=== PATIENT | female | born 1935 ===

== ENCOUNTER 2017-03-14 23:02 | Inpatient (IN) | payer MEDICARE ==
[~2017-03-14] VITALS: Ht 142.2 cm; Wt 95.3 kg
--- NOTE | 2017-03-14 22:00 | NUR ---
Patient alert and oriented and verbally able to let needs known. Was admitted from [facility] for R ankle ORIF s/p fall. Patient states that she lives in [place] and came to [place] for a wedding that she unfortunately couldn't make it to. Patient does deny any pain or discomfort at this time, no SOB respirations even and unlabored on room air. Vitals WNL. Skin check done and noted with bruises on R and L hand. R ankle is wrapped, will contact surgeon tomorrow for any treatment orders. Dr Perez from the [facility] was called, went over orders and continued medication as ordered. Also contacted Dr. Vuong and informed him of the orders. Patient in bed resting peacefully, explained the use of call light; it is within reach. Will continue to monitor.
[2017-03-15] MEDS: HYDROCODONE/APAP 10-325 MG TABLET PO PRN ×2 (06:19→16:07)
--- NOTE | 2017-03-15 06:21 | NUR ---
Patient slept well throughout the night, had no signs of respiratory distress, maintained clean and dry. Did c/o pain this morning and medication was administered as needed. Call light within reach, will continue to monitor.
[2017-03-15] MEDS ORDERED: HYDROCODONE/APAP 10-325 MG TABLET ONE (06:29)
[2017-03-15] MEDS ORDERED: METR500T PO (07:34)
[2017-03-15] MEDS ORDERED: SENN1TAB5 PO (07:34)
[2017-03-15] MEDS ORDERED: ATOR20TA PO (07:34)
[2017-03-15] MEDS ORDERED: FURO80TA87 PO (07:34)
[2017-03-15] MEDS ORDERED: HYDR-548 PO (07:34)
[2017-03-15] MEDS ORDERED: ANAS1TAB8 PO (07:34)
[2017-03-15] MEDS ORDERED: LOSA25TA13 PO (07:34)
[2017-03-15] MEDS ORDERED: PANT40TA4 PO (07:34)
[2017-03-15 08:00] VITALS: BP 106/53
[2017-03-15] MEDS ORDERED: METRONIDAZOLE 500 MG TABLET PO SCH (09:00)
[2017-03-15] MEDS: FUROSEMIDE 80 MG TABLET PO SCH ×2 (09:00→16:31)
[2017-03-15] MEDS: LOSARTAN POTASSIUM 25 MG TABLET PO SCH (10:04)
[2017-03-15] MEDS: PANTOPRAZOLE SODIUM 40 MG TABLET.DR PO SCH (10:10)
[2017-03-15] MEDS: SENNOSIDES/DOCUSATE SODIUM TABLET PO PRN (10:10)
[2017-03-15] MEDS: ANASTROZOLE 1 MG TABLET PO SCH (16:32)
[2017-03-15] MEDS ORDERED: ENOXAPARIN SODIUM 40 MG/0.4 ML DISP.SYRIN SQ SCH (20:30)
[2017-03-15] MEDS: ATORVASTATIN 20 MG TABLET PO SCH (21:40)
[2017-03-15] MEDS ORDERED: ENOXAPARIN SODIUM 40 MG/0.4 ML DISP.SYRIN SQ ONE (21:48)
[2017-03-15 22:00] VITALS: BP 138/64
[2017-03-16] MEDS: PANTOPRAZOLE SODIUM 40 MG TABLET.DR PO SCH (06:08)
--- NOTE | 2017-03-16 07:30 | NUR ---
PT RECEIVED IN BED AWAKE.NO C/O PAIN NOTED.V/S ARE STABLE.PT IS AXOX4'BREAKFAST SERVED,
[2017-03-16] MEDS: LOSARTAN POTASSIUM 25 MG TABLET PO SCH (08:08)
[2017-03-16] MEDS: FUROSEMIDE 80 MG TABLET PO SCH ×2 (08:10→16:05)
[2017-03-16] MEDS: ANASTROZOLE 1 MG TABLET PO SCH (08:12)
[2017-03-16 08:32] LABS: CARBON DIOXIDE 30 mmol/L (21-32); CHLORIDE 103 mmol/L (98-107); CREATININE 0.9 mg/dL (0.6-1.3); GLUCOSE 98 mg/dL (74-106); MAGNESIUM 1.9 mg/dL (1.8-2.4); POTASSIUM 3.8 mmol/L (3.5-5.1); UREA NITROGEN, BLOOD 26 mg/dL (7-18)
[2017-03-16 08:42] VITALS: BP 142/78
[2017-03-16 08:54] LABS: BASOPHILS % (AUTO) 0.3 % (0.0-2.0); EOSINOPHILS # (AUTO) 0.5 K/uL (0.0-0.7); EOSINOPHILS % (AUTO) 7.4 % (0.0-7.0); HEMATOCRIT 32.2 % (37-47); HEMOGLOBIN 10.7 G/DL (12.0-16.0); LYMPHOCYTES # (AUTO) 0.6 K/UL (0.8-4.8); LYMPHOCYTES % (AUTO) 10.6 % (20.5-51.5); MEAN CORPUSCULAR HEMOGLOBIN 31.1 UUG (27.0-31.0); MEAN CORPUSCULAR HGB CONC 33 g/dL (32.0-37.0); MEAN CORPUSCULAR VOLUME 93.3 FL (81.0-99.0); MONOCYTES # (AUTO) 0.5 K/UL (0.1-1.30); MONOCYTES % (AUTO) 7.5 % (0.0-11.0); NEUTROPHILS # (AUTO) 4.5 K/UL (1.8-8.9); NEUTROPHILS % (AUTO) 74.2 % (38.5-71.5); PLATELET COUNT (AUTO) 205 K/UL (150-450); RED BLOOD CELL COUNT(AUTO) 3.45 MIL/UL (4.2-5.4); WHITE BLOOD COUNT (AUTO) 6.1 K/UL (4.0-11.2)
[2017-03-16] MEDS: HYDROCODONE/APAP 10-325 MG TABLET PO PRN (09:37)
--- NOTE | 2017-03-16 12:30 | NUR ---
PT EATING LUNCH IN HER ROOM .NO C/O PAIN NOTED.
--- NOTE | 2017-03-16 14:00 | NUR ---
PT IS IN ACTIVITY ROOM WITH HER FAMILY
--- NOTE | 2017-03-16 17:25 | NUR ---
PT IS EATING HER DINNER ,NO C/O PAIN NOTED.
[2017-03-16 20:00] VITALS: BP 124/62
[2017-03-16] MEDS: ATORVASTATIN 20 MG TABLET PO SCH (21:19)
[2017-03-16] MEDS: ENOXAPARIN SODIUM 40 MG/0.4 ML DISP.SYRIN SQ SCH (21:22)
[2017-03-16 21:34] VITALS: BP 124/62
[2017-03-17] MEDS: PANTOPRAZOLE SODIUM 40 MG TABLET.DR PO SCH (06:37)
--- NOTE | 2017-03-17 07:30 | NUR ---
PT RECEIVED IN BED AWAKE.PT IS AXOX4.NO C/O PAIN NOTED.V/S ARE STABLE.BREAKFAST SERVED.
[2017-03-17] MEDS: FUROSEMIDE 80 MG TABLET PO SCH ×2 (08:04→16:11)
[2017-03-17] MEDS: ANASTROZOLE 1 MG TABLET PO SCH (08:05)
[2017-03-17] MEDS: LOSARTAN POTASSIUM 25 MG TABLET PO SCH (08:05)
[2017-03-17 08:12] VITALS: BP 146/69
--- NOTE | 2017-03-17 08:26 | NUR ---
MORNING MEDS GIVEN ,PT TOLERATED WELL
[2017-03-17] MEDS: HYDROCODONE/APAP 10-325 MG TABLET PO PRN ×2 (09:30→13:43)
[2017-03-17] MEDS: SENNOSIDES/DOCUSATE SODIUM TABLET PO PRN ×2 (09:30→20:58)
--- NOTE | 2017-03-17 17:47 | NUR ---
EAT HER DINNER,PT IS RESTING IN HER BED,NO S/S IF DISTRESS NOTED.DIAPER CHANGED.
[2017-03-17 20:00] VITALS: BP 119/51
[2017-03-17] MEDS: ATORVASTATIN 20 MG TABLET PO SCH (20:57)
[2017-03-17] MEDS: ENOXAPARIN SODIUM 40 MG/0.4 ML DISP.SYRIN SQ SCH (21:01)
[2017-03-17 21:06] VITALS: BP 119/51
[2017-03-18] MEDS: PANTOPRAZOLE SODIUM 40 MG TABLET.DR PO SCH (06:22)
--- NOTE | 2017-03-18 07:58 | NUR ---
Patient alert and oriented and verbally able to let needs known. Patient does deny any pain or discomfort at this time, no SOB respirations even and unlabored on room air. Vitals WNL. Skin check done and noted with bruises on R and L hand. Patient in bed resting peacefully, explained the use of call light; with in reach. Will continue to monitor.
[2017-03-18 08:00] VITALS: BP 149/65
[2017-03-18] MEDS: LOSARTAN POTASSIUM 25 MG TABLET PO SCH (08:03)
[2017-03-18] MEDS: SENNOSIDES/DOCUSATE SODIUM TABLET PO PRN (08:03)
[2017-03-18] MEDS: FUROSEMIDE 80 MG TABLET PO SCH ×2 (08:03→16:14)
[2017-03-18] MEDS: ANASTROZOLE 1 MG TABLET PO SCH (08:05)
[2017-03-18] MEDS ORDERED: BISACODYL 10 MG SUPP.RECT RC SCH (12:15)
--- NOTE | 2017-03-18 12:36 | NUR ---
PT IS SEEN BY DR MÁRQUEZ NEW ORDERS RECEIVED AND CARRIED OUT.
[2017-03-18] MEDS ORDERED: BISACODYL 10 MG SUPP.RECT RC PRN (15:30)
[2017-03-18 20:00] VITALS: BP 135/63
[2017-03-18] MEDS: HYDROCODONE/APAP 10-325 MG TABLET PO PRN (21:28)
[2017-03-18] MEDS: ATORVASTATIN 20 MG TABLET PO SCH (21:28)
[2017-03-18] MEDS: ENOXAPARIN SODIUM 40 MG/0.4 ML DISP.SYRIN SQ SCH (21:31)
[2017-03-18 21:43] VITALS: BP 135/63
[2017-03-19] MEDS: HYDROCODONE/APAP 10-325 MG TABLET PO PRN ×2 (04:32→15:03)
[2017-03-19] MEDS: PANTOPRAZOLE SODIUM 40 MG TABLET.DR PO SCH (06:13)
[2017-03-19 08:40] VITALS: BP 135/59
[2017-03-19] MEDS: ANASTROZOLE 1 MG TABLET PO SCH (08:51)
[2017-03-19] MEDS: MIRALAX 17 GM POWD.PACK PO SCH (08:52)
[2017-03-19] MEDS: LOSARTAN POTASSIUM 25 MG TABLET PO SCH (08:52)
[2017-03-19] MEDS: FUROSEMIDE 80 MG TABLET PO SCH ×2 (08:52→17:10)
--- NOTE | 2017-03-19 15:55 | NUR ---
REHAB TEAM CONFERENCE MEETING 03/19/17
--- NOTE | 2017-03-19 15:59 | NUR ---
Supervisor Smoke Control: SW met with pt at bedside to assess needs and provide support. Pt is an 81-year-old female admitted to [facility] for a right ankle fracture. Per pt, she lives in [place] and traveled to [place] for a family wedding. Pt reported she fell in the bathtub of a handicap room while staying in a hotel. She reported she fell by accident and stated "I don't blame the hotel because it had railings." Additionally, pt stated she has a hx of falling. Per pt, she lives at home with her daughter and her family who provide care. She reported to have no issues with ADL's, and later stated "I shower,clean,and cook for myself. Pt also stated "I do use my walker but I don't always need it." Per pt, her goal is to "return back home with my family." Pt verbalized concerns regarding how long she may be hospitalized, and reported "I just don't want them to discharge me if I'm not ready." Additionally, she reported concerns regarding traveling arrangements in order for her family to travel to the [place] and take her back home. SW reassured pt that she would be discharged once medically stable. SW reassured pt that CM and SS would communicate with her son in order to arrange travels in a timely manner. Pt reported that she is planning to move to a [address] Apart[address] when she returns back home. Per pt, she would like to be placed at a more appropirate setting with staff who can provide care. SW provided supportive counseling to deal with pts decline in functioning and recent fall. SW engaged in active listening. SW will continue to address issues of loss related to recent falls.
[2017-03-19 20:28] VITALS: BP 130/62
[2017-03-19] MEDS: ATORVASTATIN 20 MG TABLET PO SCH (21:10)
[2017-03-19] MEDS: ENOXAPARIN SODIUM 40 MG/0.4 ML DISP.SYRIN SQ SCH (21:11)
[2017-03-20] MEDS: PANTOPRAZOLE SODIUM 40 MG TABLET.DR PO SCH (06:20)
--- NOTE | 2017-03-20 06:58 | NUR ---
Patient slept well all night, had no c/o pain or discomfort. Maintained clean and dry throughout the night. Call light within reach, all needs attended to.
--- NOTE | 2017-03-20 07:18 | NUR ---
Received patient from overnight cashier, patient resting comfortably in bed, no signs of acute distress noted. VS WNL, no complaints of pain at this time. No other verbalized needs at this time, safety and fall precautions maintained. Plan of care reviewed with patient.
[2017-03-20 08:00] VITALS: BP 137/55
[2017-03-20] MEDS: HYDROCODONE/APAP 10-325 MG TABLET PO PRN ×2 (09:18→15:12)
[2017-03-20] MEDS: FUROSEMIDE 80 MG TABLET PO SCH ×2 (09:18→17:05)
[2017-03-20] MEDS: LOSARTAN POTASSIUM 25 MG TABLET PO SCH (09:18)
[2017-03-20] MEDS: ANASTROZOLE 1 MG TABLET PO SCH (09:26)
[2017-03-20] MEDS: MIRALAX 17 GM POWD.PACK PO SCH (09:26)
[2017-03-20 20:45] VITALS: BP 127/47
[2017-03-20] MEDS: ATORVASTATIN 20 MG TABLET PO SCH (21:17)
[2017-03-20] MEDS: ENOXAPARIN SODIUM 40 MG/0.4 ML DISP.SYRIN SQ SCH (21:17)
[2017-03-21] MEDS: PANTOPRAZOLE SODIUM 40 MG TABLET.DR PO SCH (06:21)
--- NOTE | 2017-03-21 06:22 | NUR ---
Patient awake and alert and able to let needs known. Denies any pain or discomfort at this time, no signs of respiratory distress. Maintained clean and dry all night. Slept well.
[2017-03-21 08:00] LABS: BASOPHILS % (AUTO) 0.4 % (0.0-2.0); EOSINOPHILS # (AUTO) 0.2 K/uL (0.0-0.7); HEMATOCRIT 34.5 % (37-47); HEMOGLOBIN 11.6 G/DL (12.0-16.0); LYMPHOCYTES # (AUTO) 0.9 K/UL (0.8-4.8); LYMPHOCYTES % (AUTO) 15.1 % (20.5-51.5); MEAN CORPUSCULAR HGB CONC 34 g/dL (32.0-37.0); MEAN CORPUSCULAR VOLUME 92.4 FL (81.0-99.0); MONOCYTES # (AUTO) 0.4 K/UL (0.1-1.30); MONOCYTES % (AUTO) 5.7 % (0.0-11.0); NEUTROPHILS # (AUTO) 4.7 K/UL (1.8-8.9); NEUTROPHILS % (AUTO) 74.8 % (38.5-71.5); PLATELET COUNT (AUTO) 327 K/UL (150-450); RED BLOOD CELL COUNT(AUTO) 3.73 MIL/UL (4.2-5.4); WHITE BLOOD COUNT (AUTO) 6.2 K/UL (4.0-11.2)
[2017-03-21 08:04] VITALS: BP 128/57
[2017-03-21 08:34] LABS: THYROID STIMULATING HORMONE 0.872 mIU/mL (0.358-3.740)
[2017-03-21 08:36] LABS: IRON, SERUM 51 ug/dL (50-175)
[2017-03-21 08:38] LABS: ALANINE AMINOTRANSFERASE 44 U/L (14-59); ALKALINE PHOSPHATASE 85 U/L (50-136); ASPARTATE AMINOTRANSFERASE 50 U/L (15-37); BILIRUBIN,TOTAL 0.6 mg/dL (0.2-1.0); CARBON DIOXIDE 33 mmol/L (21-32); CHLORIDE 104 mmol/L (98-107); CREATININE 0.9 mg/dL (0.6-1.3); GLUCOSE 101 mg/dL (74-106); MAGNESIUM 1.9 mg/dL (1.8-2.4); PHOSPHOROUS 3.8 mg/dL (2.5-4.9); POTASSIUM 3.9 mmol/L (3.5-5.1); TOTAL PROTEIN, SERUM 6.5 g/dL (6.4-8.2); UREA NITROGEN, BLOOD 21 mg/dL (7-18)
[2017-03-21] MEDS: MIRALAX 17 GM POWD.PACK PO SCH (09:00)
[2017-03-21 09:29] LABS: CHOLESTEROL 119 mg/dL (<200); HDL CHOLESTEROL 37 mg/dL (40-60); TRIGLYCERIDES 96 MG/DL (30-150)
[2017-03-21] MEDS: ANASTROZOLE 1 MG TABLET PO SCH (10:10)
[2017-03-21] MEDS: FUROSEMIDE 80 MG TABLET PO SCH ×2 (10:11→17:00)
[2017-03-21] MEDS: LOSARTAN POTASSIUM 25 MG TABLET PO SCH (10:11)
[2017-03-21] MEDS: HYDROCODONE/APAP 10-325 MG TABLET PO PRN ×2 (12:38→21:46)
--- NOTE | 2017-03-21 12:40 | NUR ---
PATIENT TOLERATED THERAPY. PATIENT COMPLAINED OF R ANKLE PAIN RATED 9/10. PRN MEDICATIONS GIVEN.
--- NOTE | 2017-03-21 17:42 | NUR ---
Tolerated therapy well. With tolerable pain rated as 4/10. Offered pain medications, but refused. Refused Lasix for tonight as well and said "maybe I will take it tomorrow but not tonight,I had enough for the day."
--- NOTE | 2017-03-21 18:00 | NUR ---
Informed Dr. Palacios for possible ortho consult and Dr. myrick to follow up with case management assistant because ortho of patient who conducted the surgery has no privilege in [place]. Will follow up with case management assistant
[2017-03-21 19:00] VITALS: BP 115/47
[2017-03-21] MEDS: ATORVASTATIN 20 MG TABLET PO SCH (21:43)
[2017-03-21] MEDS: ENOXAPARIN SODIUM 40 MG/0.4 ML DISP.SYRIN SQ SCH (21:45)
[2017-03-22] MEDS: PANTOPRAZOLE SODIUM 40 MG TABLET.DR PO SCH (06:51)
[2017-03-22 08:05] VITALS: BP 164/59
[2017-03-22] MEDS: FUROSEMIDE 80 MG TABLET PO SCH ×2 (08:45→18:10)
[2017-03-22] MEDS: LOSARTAN POTASSIUM 25 MG TABLET PO SCH (08:47)
[2017-03-22] MEDS: MIRALAX 17 GM POWD.PACK PO SCH (08:47)
[2017-03-22] MEDS: ANASTROZOLE 1 MG TABLET PO SCH (11:04)
--- NOTE | 2017-03-22 18:41 | NUR ---
pt refused miralax in the morning but had voided throughout the day with lasix. nicking machine operator states that pt is incontinent and had no bm during the day. pt adhered to other meds. applied pillows to right foot to decrease edema. pt complaints of pain but refused norco. given tylenol for pain. pt adhered to therapy throughout the day. pt given food and had adequate nutrition. provided comfort measures. initiated fall precautions. will continue to endorse orders to body shop manager nurse,.
--- NOTE | 2017-03-22 19:30 | NUR ---
RECEIVED PATIENT AWAKE, ALERT, AND ORIENTED X4. RIGHT LEG WITH CAST/ DUNIA WRAP INTACT. RIGHT LEG ELEVATED ON PILLOW TO ASSIST WITH DECREASING EDEMA. CSM ADEQUATE TO RIGHT TOES. COMFORTABLE AT PRESENT. REFUSES PM SNACK/ INSTRUCTED TO CALL RN FOR ANY NEEDS OR REQUESTS. VERBALIZES GOOD UNDERSTANDING. CALL LIGHT WITHIN REACH AAT. BED ALARM ON.
[2017-03-22] MEDS: ATORVASTATIN 20 MG TABLET PO SCH (21:06)
[2017-03-22] MEDS: ENOXAPARIN SODIUM 40 MG/0.4 ML DISP.SYRIN SQ SCH (21:08)
[2017-03-22] MEDS: HYDROCODONE/APAP 10-325 MG TABLET PO PRN (21:58)
[2017-03-22 23:09] VITALS: BP 137/47
--- NOTE | 2017-03-23 06:00 | NUR ---
SLEPT WELL TONIGHT.RIGHT FOOT WITH ADEQUATE CSM. NO C/O PAIN THIS MORNING.IN NAD. APPEARS COMFORTABLE.CALL LIGHT WITHIN REACH
[2017-03-23] MEDS: PANTOPRAZOLE SODIUM 40 MG TABLET.DR PO SCH (06:30)
--- NOTE | 2017-03-23 08:20 | NUR ---
RECEIVED PATIENT AWAKE, ALERT AND ORIENTED X4. NO S/S OF DISTRESS. NO COMPLAINTS OF PAIN OR DISCOMFORT AT THE MOMENT. STILL WITH R ANKLE HALF CAST INTACT. NAIL BEDS ON RIGHT FOOT ARE PINK, WITH GOOD MOVEMENT OF TOES NO LOSS OF SENSATION. WILL CONTINUE TO MONITOR. CALL LIGHT WITHIN REACH
--- NOTE | 2017-03-23 08:45 | NUR ---
REFUSED TO TAKE LASIX, ACCORDING TO PATIENT SHE WAS NOT ABLE TO SLEEP WELL BECAUSE OF THE PEEING AND THAT SHE DOESN'T WANT THE PEEING GO IN THE WAY OF THERAPY. REFUSED MIRALAX, SHE SAID SHE DID NOT NEED IT.
[2017-03-23] MEDS: ANASTROZOLE 1 MG TABLET PO SCH (08:57)
[2017-03-23] MEDS: FUROSEMIDE 80 MG TABLET PO SCH ×2 (09:00→17:00)
[2017-03-23] MEDS: MIRALAX 17 GM POWD.PACK PO SCH (09:00)
[2017-03-23] MEDS: LOSARTAN POTASSIUM 25 MG TABLET PO SCH (09:01)
[2017-03-23 10:08] VITALS: BP 151/62
[2017-03-23] MEDS: HYDROCODONE/APAP 10-325 MG TABLET PO PRN ×2 (13:49→20:23)
--- NOTE | 2017-03-23 13:52 | NUR ---
PATIENT COMPLAINED OF RIGHT ANKLE PAIN RATED 9/10. PRN PAIN MEDICATION GIVEN
--- NOTE | 2017-03-23 17:13 | NUR ---
NO PAIN NOTED AT THE MOMENT. RIGHT TOES CHECKED, NO LOSS OF SENSATION, POSITIVE MOVEMENT. REFUSED TO TAKE LASIX AND SAID SHE WANTS TO SLEEP BETTER TONIGHT WITHOUT GOING TO URINATE ALL THE TIME.
--- NOTE | 2017-03-23 19:30 | NUR ---
RECEIVED PATIENT AWAKE, ALERT, AND ORIENTED X4. APPEARS IN NAD AT PRESENT. RIGHT LEG WITH CAST/ DUNIA WRAP INTACT. CSM ADEQUATE TO TOES. RIGHT LEG ELEVATED ON PILLOW FOR COMFORT AND TO HELP WITH DECREASING SWELLING. TIRED TODAY FROM WORK DONE WITH PHYSICAL THERAPY. INSTRUCTED TO CALL RN FOR ANY NEEDS/ REQUESTS. PATIENT VERBALLY UNDERSTANDS. CALL LIGHT WITHIN REACH AAT.BED ALARM PLACE ON.
[2017-03-23 20:00] VITALS: BP 117/51
[2017-03-23] MEDS: ATORVASTATIN 20 MG TABLET PO SCH (20:22)
[2017-03-23] MEDS: ENOXAPARIN SODIUM 40 MG/0.4 ML DISP.SYRIN SQ SCH (20:25)
--- NOTE | 2017-03-24 05:45 | NUR ---
SLEPT WELL LAST NIGHT AFTER NORCO GIVEN X1. VITALS ARE STABLE. KEPT CLEAN AND DRY SHE IS INCONTINENT IN HER DIAPERS.RIGHT LEG ELEVATED ON A PILLOW. CSM ADEQUATE TO RIGHT TOES. IN NAD THIS MORNING. BREATHING WITHOUT C/O DISTRESS. ON ROOM AIR WITH SATS OVER 94%.CALL LIGHT WITHIN REACH. ALL NEEDS/ REQUESTS WERE MET OVER THE NIGHT
[2017-03-24] MEDS: PANTOPRAZOLE SODIUM 40 MG TABLET.DR PO SCH (06:31)
[2017-03-24 08:00] VITALS: BP 130/39
--- NOTE | 2017-03-24 08:00 | NUR ---
RECEIVED PATIENT AWAKE IN BED, ALERT AND ORIENTED. NO S/S OF DISTRESS. CALL LIGHT WITHIN REACH
[2017-03-24] MEDS: MIRALAX 17 GM POWD.PACK PO SCH ×2 (09:00→11:27)
[2017-03-24] MEDS: LOSARTAN POTASSIUM 25 MG TABLET PO SCH (09:23)
[2017-03-24] MEDS: FUROSEMIDE 80 MG TABLET PO SCH ×2 (09:25→17:00)
[2017-03-24] MEDS: ANASTROZOLE 1 MG TABLET PO SCH (09:25)
[2017-03-24] MEDS: CLOTRIMAZOLE/BETAMET DIPROP CREAM 15 GM TUBE TOP SCH ×2 (09:27→21:00)
--- NOTE | 2017-03-24 09:32 | NUR ---
Patient refused to take Miralax, she said she did not need it and feels that she will have a BM this morning. Offered once again discussed benefits but refused
--- NOTE | 2017-03-24 11:24 | NUR ---
Patient said she had difficulty with bowel movement and would want to take Miralax at this time.
[2017-03-24] MEDS: HYDROCODONE/APAP 10-325 MG TABLET PO PRN ×2 (15:15→20:53)
--- NOTE | 2017-03-24 15:18 | NUR ---
COMPLAINED OF PAIN OVER ANKLE RATED 9/10, PRN PAIN MEDICATION GIVEN
--- NOTE | 2017-03-24 17:00 | NUR ---
PATIENT RELIEVED OF PAIN, RESTING IN BED. NO S/S OF DISTRESS. AWAKE, ALERT AND ORIENTED X4. NO S/S OF DISTRESS. WAS ABLE TO TOLERATE THERAPY WELL. REFUSED LASIX, EXPLAINED RISKS AND AND COMPLICATIONS. STILL REFUSED AND SAID SHE LASIX WILL NOT MAKE HER SLEEP
[2017-03-24] MEDS: ATORVASTATIN 20 MG TABLET PO SCH (20:48)
[2017-03-24] MEDS: ENOXAPARIN SODIUM 40 MG/0.4 ML DISP.SYRIN SQ SCH (20:49)
[2017-03-24 21:04] VITALS: BP 119/47
--- NOTE | 2017-03-25 06:00 | NUR ---
pt slept well overnight ,medicated x1 for pain ,right leg still on split cast. incontinent of bladder ,no bm overnight.will continue to monitor.
[2017-03-25] MEDS: PANTOPRAZOLE SODIUM 40 MG TABLET.DR PO SCH (06:24)
[2017-03-25 08:05] VITALS: BP 141/56
[2017-03-25] MEDS: FUROSEMIDE 80 MG TABLET PO SCH ×2 (08:27→17:20)
[2017-03-25] MEDS: CLOTRIMAZOLE/BETAMET DIPROP CREAM 15 GM TUBE TOP SCH ×2 (08:27→21:00)
[2017-03-25] MEDS: ANASTROZOLE 1 MG TABLET PO SCH (08:29)
[2017-03-25] MEDS: LOSARTAN POTASSIUM 25 MG TABLET PO SCH (08:30)
[2017-03-25] MEDS: MIRALAX 17 GM POWD.PACK PO SCH (08:32)
[2017-03-25] MEDS: HYDROCODONE/APAP 10-325 MG TABLET PO PRN ×2 (13:43→20:57)
[2017-03-25] MEDS: ENOXAPARIN SODIUM 40 MG/0.4 ML DISP.SYRIN SQ SCH (20:50)
[2017-03-25] MEDS: ATORVASTATIN 20 MG TABLET PO SCH (20:52)
[2017-03-25 22:00] VITALS: BP 133/50
--- NOTE | 2017-03-25 22:00 | NUR ---
received to care, lying in bed, pleasant upon approach. compliant with medications, and staff direction. PRN norco was given at 2056, for right ankle pain 04/24. as of 2199, she appears to be asleep. RLE remains elevated on a pillow. no distress noted. will continue to monitor closely.
[2017-03-26] MEDS: PANTOPRAZOLE SODIUM 40 MG TABLET.DR PO SCH (05:47)
--- NOTE | 2017-03-26 06:34 | NUR ---
slept well, last night. is now awake. no distress noted.
[2017-03-26 08:00] VITALS: BP 135/67
[2017-03-26] MEDS: CLOTRIMAZOLE/BETAMET DIPROP CREAM 15 GM TUBE TOP SCH ×2 (08:33→21:42)
[2017-03-26] MEDS: FUROSEMIDE 80 MG TABLET PO SCH ×2 (08:34→16:17)
[2017-03-26] MEDS: ANASTROZOLE 1 MG TABLET PO SCH (08:36)
[2017-03-26] MEDS: LOSARTAN POTASSIUM 25 MG TABLET PO SCH (08:38)
[2017-03-26] MEDS: MIRALAX 17 GM POWD.PACK PO SCH (08:38)
--- NOTE | 2017-03-26 10:50 | NUR ---
pt given meds as prescribed. applied cream on face. pt shows improvement regarding to reduced redness. pt right cast elevated. pt given miralax. pt requested to have miralax much later. will continue to reassess for pain or constipation.
--- NOTE | 2017-03-26 14:50 | NUR ---
Team Conference Meeting 03/26/17
--- NOTE | 2017-03-26 16:18 | NUR ---
pt refused lasix. explained benefits and risks. pt refused. will continue to reassess for complicatios.
--- NOTE | 2017-03-26 19:09 | NUR ---
pt asssessed and showed no signs of complications. face rash improving and leg swelling reducing. pt refused night time lasix. pt given norco for pain. pt showered. pt vital signs stable. no signs of acute distress. call light within reach
[2017-03-26 20:15] VITALS: BP 121/48
[2017-03-26] MEDS: ATORVASTATIN 20 MG TABLET PO SCH (20:49)
[2017-03-26] MEDS: ENOXAPARIN SODIUM 40 MG/0.4 ML DISP.SYRIN SQ SCH (20:49)
[2017-03-26] MEDS: HYDROCODONE/APAP 10-325 MG TABLET PO PRN (20:50)
[2017-03-27] MEDS: PANTOPRAZOLE SODIUM 40 MG TABLET.DR PO SCH (06:13)
[2017-03-27 08:00] VITALS: BP 118/52
[2017-03-27] MEDS: MIRALAX 17 GM POWD.PACK PO SCH (09:00)
[2017-03-27] MEDS: CLOTRIMAZOLE/BETAMET DIPROP CREAM 15 GM TUBE TOP SCH ×2 (09:09→21:38)
[2017-03-27] MEDS: LOSARTAN POTASSIUM 25 MG TABLET PO SCH (09:11)
[2017-03-27] MEDS: ANASTROZOLE 1 MG TABLET PO SCH (09:45)
[2017-03-27] MEDS: FUROSEMIDE 80 MG TABLET PO SCH ×2 (09:51→16:32)
[2017-03-27] MEDS: HYDROCODONE/APAP 10-325 MG TABLET PO PRN ×2 (11:42→21:38)
--- NOTE | 2017-03-27 18:46 | NUR ---
pt progressing towards goals. pt participating in activities and care. continue plan of care.
[2017-03-27 20:00] VITALS: BP 156/49
--- NOTE | 2017-03-27 20:00 | NUR ---
RECEIVED PATIENT AWAKE, ALERT, AND ORIENTED X 4. IN NO ACUTE PAIN OR DISCOMFORT AT PRESENT BUT WOULD LIKE NORCO PRIOR TO SLEEPING IF HER PAIN INCREASES. RIGHT LEG WITH INTACT CAST/ WRAPPED WITH DUNIA WRAP. CSM ADEQUATE TO RIGHT TOES. RIGHT LEG ELEVATED ON PILLOW TO HELP TO DECREASE HER SWELLING IN THAT LEG. APPEARS TO HAVE LESS SWELLING IN RIGHT LEG SINCE MY LAST TAKING CARE OF HER. FACIAL RASH ALSO APPEARS TO BE IMPROVING WITH LESS REDNESS SINCE ANTIFUNGAL CREAM WAS INITIATED A FEW DAYS AGO.INSTRUCTED TO CALL FOR ANY NEEDS OR CONCERNS/ REQUESTS. PATIENT VERBALIZES GOOD UNDERSTANDING. CALL LIGHT WITHIN REACH AAT
[2017-03-27] MEDS: ATORVASTATIN 20 MG TABLET PO SCH (21:37)
[2017-03-27] MEDS: ENOXAPARIN SODIUM 40 MG/0.4 ML DISP.SYRIN SQ SCH (21:40)
[2017-03-27 23:00] VITALS: BP 144/53
--- NOTE | 2017-03-28 06:00 | NUR ---
HAD A RESTFUL NIGHT TONIGHT. SLEPT WELL. COMFORTABLE THIS MORNING. CONTINUES TO HAVE ADEQUATE CSM TO RIGHT TOES. ABLE TO LIFT RIGHT LEG OFF OF ELEVATED PILLOW HERSELF A LITTLE HIGHER THIS MORNING. PATIENT STATES HER PLAN OF DISCHARGE WILL BE ON FRIDAY. CALL LIGHT WITHIN REACH
[2017-03-28] MEDS: PANTOPRAZOLE SODIUM 40 MG TABLET.DR PO SCH (06:33)
[2017-03-28] MEDS: MIRALAX 17 GM POWD.PACK PO SCH (08:09)
[2017-03-28] MEDS: CLOTRIMAZOLE/BETAMET DIPROP CREAM 15 GM TUBE TOP SCH ×2 (08:09→21:18)
[2017-03-28] MEDS: FUROSEMIDE 80 MG TABLET PO SCH ×2 (08:09→17:00)
[2017-03-28] MEDS: ANASTROZOLE 1 MG TABLET PO SCH (08:11)
[2017-03-28] MEDS: LOSARTAN POTASSIUM 25 MG TABLET PO SCH (08:13)
[2017-03-28 08:20] VITALS: BP 140/55
[2017-03-28] MEDS ORDERED: HYDROCODONE/APAP 10-325 MG TABLET PO PRN (14:00)
--- NOTE | 2017-03-28 19:27 | NUR ---
pt complained of pain during exercise and given meds to alleviate pain. pt refused night time lasix. cream applied to face. foot elevated. changed linens and changed diaper as needed. provided comfort measures provided and call light withing reach. will continue to endorse new orders to night shfit nurse
[2017-03-28 20:00] VITALS: BP 115/44
[2017-03-28] MEDS: ATORVASTATIN 20 MG TABLET PO SCH (21:14)
[2017-03-28] MEDS: ENOXAPARIN SODIUM 40 MG/0.4 ML DISP.SYRIN SQ SCH (21:18)
[2017-03-29] MEDS: PANTOPRAZOLE SODIUM 40 MG TABLET.DR PO SCH (05:42)
[2017-03-29] MEDS: FUROSEMIDE 80 MG TABLET PO SCH ×2 (08:29→16:35)
[2017-03-29] MEDS: MIRALAX 17 GM POWD.PACK PO SCH (08:29)
[2017-03-29] MEDS: CLOTRIMAZOLE/BETAMET DIPROP CREAM 15 GM TUBE TOP SCH ×2 (08:31→21:10)
[2017-03-29] MEDS: LOSARTAN POTASSIUM 25 MG TABLET PO SCH (08:31)
[2017-03-29] MEDS: ANASTROZOLE 1 MG TABLET PO SCH (08:31)
[2017-03-29 08:48] VITALS: BP 159/64
[2017-03-29] MEDS: HYDROCODONE/APAP 10-325 MG TABLET PO PRN ×2 (16:34→21:15)
--- NOTE | 2017-03-29 16:35 | NUR ---
pt refused lasix. complained of pain. given norco for pain. will reassess for effective ness.
[2017-03-29 20:09] VITALS: BP 135/53
[2017-03-29] MEDS: ATORVASTATIN 20 MG TABLET PO SCH (21:10)
[2017-03-29] MEDS: ENOXAPARIN SODIUM 40 MG/0.4 ML DISP.SYRIN SQ SCH (21:12)
[2017-03-30] MEDS: PANTOPRAZOLE SODIUM 40 MG TABLET.DR PO SCH (07:19)
[2017-03-30 07:30] VITALS: BP 138/59
[2017-03-30 07:41] LABS: BASOPHILS % (AUTO) 0.6 % (0.0-2.0); EOSINOPHILS # (AUTO) 0.3 K/uL (0.0-0.7); EOSINOPHILS % (AUTO) 6.1 % (0.0-7.0); HEMATOCRIT 35.5 % (37-47); HEMOGLOBIN 11.8 G/DL (12.0-16.0); LYMPHOCYTES # (AUTO) 1.3 K/UL (0.8-4.8); LYMPHOCYTES % (AUTO) 30.7 % (20.5-51.5); MEAN CORPUSCULAR HEMOGLOBIN 31.2 UUG (27.0-31.0); MEAN CORPUSCULAR HGB CONC 33 g/dL (32.0-37.0); MEAN CORPUSCULAR VOLUME 93.4 FL (81.0-99.0); MONOCYTES # (AUTO) 0.4 K/UL (0.1-1.30); MONOCYTES % (AUTO) 9.2 % (0.0-11.0); NEUTROPHILS # (AUTO) 2.2 K/UL (1.8-8.9); NEUTROPHILS % (AUTO) 53.4 % (38.5-71.5); PLATELET COUNT (AUTO) 266 K/UL (150-450)
[2017-03-30 07:53] LABS: WHITE BLOOD COUNT (AUTO) 4.2 K/UL (4.0-11.2)
[2017-03-30 08:04] LABS: ALANINE AMINOTRANSFERASE 34 U/L (14-59); ALKALINE PHOSPHATASE 81 U/L (50-136); ASPARTATE AMINOTRANSFERASE 26 U/L (15-37); BILIRUBIN,TOTAL 0.5 mg/dL (0.2-1.0); CARBON DIOXIDE 29 mmol/L (21-32); CHLORIDE 105 mmol/L (98-107); CREATININE 0.9 mg/dL (0.6-1.3); GLUCOSE 87 mg/dL (74-106); MAGNESIUM 2.1 mg/dL (1.8-2.4); PHOSPHOROUS 3.1 mg/dL (2.5-4.9); POTASSIUM 4.6 mmol/L (3.5-5.1); TOTAL PROTEIN, SERUM 6.3 g/dL (6.4-8.2); UREA NITROGEN, BLOOD 29 mg/dL (7-18)
[2017-03-30] MEDS: MIRALAX 17 GM POWD.PACK PO SCH (09:00)
[2017-03-30 09:03] VITALS: BP 138/59
[2017-03-30] MEDS: LOSARTAN POTASSIUM 25 MG TABLET PO SCH (09:03)
[2017-03-30] MEDS: FUROSEMIDE 80 MG TABLET PO SCH ×2 (09:03→17:00)
[2017-03-30] MEDS: ANASTROZOLE 1 MG TABLET PO SCH (09:05)
[2017-03-30] MEDS: CLOTRIMAZOLE/BETAMET DIPROP CREAM 15 GM TUBE TOP SCH (09:06)
--- NOTE | 2017-03-30 17:54 | NUR ---
PT DISCHARGE TO BOARD AND CARE WITH AMBULANCE, TRANSPORTED BY [facility],ALL BELONGINGS GIVEN AND SENT TO PT, DISCHARGED INSTRUCTION GIVEN AND SIGNED. TO CONTINUE TO ALL HOME MEDS, PRESCRIPTION FROM [facility] GIVEN BACK TO PT, DISC PLACED INSIDE HER PACKET.PILLBOX FROM PHARMACY RETURNED TO PT. DR. MOTA INSTRUCTIONS TO CONTINUE HOME MEDS EXCEPT WITH [facility]. REPORT GIVEN TO AMBULANCE PERSONNEL. ALL DME GIVEN AND TRANSPORTED WITH PT.
== END 2017-03-30 18:00 | disposition home health service (06) | DRG 560 ==
PROVIDERS: ADMIT Physical Medicine & Rehabilitation Pain Medicine; ATTEND Physical Medicine & Rehabilitation Pain Medicine
DX: S82.851D Displaced trimalleolar fracture of right lower leg, subsequent encounter for closed fracture with routine healing (principal); Z68.41 Body mass index [BMI] 40.0-44.9, adult; D68.59 Other primary thrombophilia; W19.XXXD Unspecified fall, subsequent encounter; D64.9 Anemia, unspecified; I10 Essential (primary) hypertension; E78.5 Hyperlipidemia, unspecified; K56.41 Fecal impaction; Z85.3 Personal history of malignant neoplasm of breast; Z92.3 Personal history of irradiation; E66.9 Obesity, unspecified; I11.0 Hypertensive heart disease with heart failure; I50.9 Heart failure, unspecified; I70.0 Atherosclerosis of aorta; K59.09 Other constipation; L21.9 Seborrheic dermatitis, unspecified; R20.0 Anesthesia of skin; R53.83 Other fatigue; R06.02 Shortness of breath
CPT/HCPCS: 36415; 71010; 82306; 83550; 83735; 84100; 84443; 85025; 92523; 93307; 97110; 97112; 97116; 97165; 97530; 97535; A4663; J1650